=== PATIENT | female | born 1970 | race African-American/Black ===

== ENCOUNTER 2019-01-16 09:22 | Emergency (ER) | payer MEDICAID ==
[~2019-01-16] VITALS: Ht 157.5 cm; Wt 74.8 kg
[2019-01-16] MEDS ORDERED: AMOXICILLIN500 M1 PO (09:32)
[2019-01-16] MEDS ORDERED: IBUPROFEN600 MG ORAL (09:32)
--- NOTE | 2019-01-16 09:43 | NUR ---
ED Nurse Note: Pt walked in from home c/o lower back pain x2wks. Denies injury. Pt aaox4, placed in hospital gown. Urine sample collected and sent down to lab.
--- NOTE | 2019-01-16 09:46 | NUR ---
ED Nurse Note: ERMD at bedside.
[2019-01-16 09:58] VITALS: BP 132/69
--- NOTE | 2019-01-16 09:59 | Emergency Room Report ---
History of Present Illness General Chief Complaint: Back Pain-No Injury Source: Patient Present Illness HPI 48-year-old female presents with left flank pain increased urinary frequency x1 week, no fever no chills, no cough no congestion, she endorses a deep ache no aggravating relieving factors severity is moderate, constant, patient presents for evaluation. Allergies: Coded Allergies: GENTAMICIN (Verified Allergy, Unknown, 01/16/19) Patient History Past Medical History: see triage record Last Menstrual Period: 12/21/18 Now: No Reviewed Nursing Documentation: PMH: Agreed; PSxH: Agreed Review of Systems All Other Systems: negative except mentioned in HPI Physical Exam Vital Signs Date Time Temp Pulse Resp B/P (MAP) Pulse Ox O2 Delivery O2 Flow Rate FiO2 01/16/19 09:26 98.2 85 20 116/71 (86) 97 Room Air Sp02 EP Interpretation: reviewed, normal General Appearance: well appearing, no apparent distress, alert Head: normocephalic, atraumatic Eyes: bilateral eye PERRL, bilateral eye EOMI ENT: uvula midline, moist mucus membranes Neck: supple, thyroid normal, supple/symm/no masses Respiratory: lungs clear, no respiratory distress, no retraction, no accessory muscle use Cardiovascular #1: normal peripheral pulses, regular rate, rhythm, no edema, no gallop, no murmur Gastrointestinal: non tender, soft, no guarding, no rebound Genitourinary: CVA tenderness (L) Musculoskeletal: normal inspection Neurologic: alert, oriented x3 Psychiatric: mood/affect normal Skin: no rash, warm/dry Medical Decision Making Diagnostic Impression: Primary Impression: Back pain Qualified Codes: M54.5 - Low back pain Additional Impression: UTI (urinary tract infection) Qualified Codes: N30.00 - Acute cystitis without hematuria ER Course 48-year-old female presents with increased urination frequency, left flank pain , concerning for [place] versus UTI versus diverticulitis versus mechanical back pain Labs show possible UTI, CT scan shows no acute intra-abdominal processes Will provide patient with antibiotics, [id number] pain medication recommended for left lower back pain she has no red flags no bowel bladder retention/incontinence Disposition home with return precautions Laboratory Tests Test 01/16/19 09:35 01/16/19 09:50 Urine Color Pale yellow Urine Appearance Clear Urine pH 5 (4.5-8.0) Urine Specific [place] 1.010 (1.005-1.035) Urine Protein Negative (NEGATIVE) Urine Glucose (UA) Negative (NEGATIVE) Urine Ketones Negative (NEGATIVE) Urine Blood Negative (NEGATIVE) Urine Nitrite Negative (NEGATIVE) Urine Bilirubin Negative (NEGATIVE) Urine Urobilinogen Normal MG/DL (0.0-1.0) Urine Leukocyte Esterase 1+ (NEGATIVE) H Urine RBC 0-2 /HPF (0 - 2) Urine WBC 2-4 /HPF (0 - 2) Urine Squamous Epithelial Cells Few /LPF (NONE/OCC) Urine Bacteria Few /HPF (NONE) White Blood Count 8.0 K/UL (4.8-10.8) Red Blood Count 4.60 M/UL (4.20-5.40) Hemoglobin 13.6 G/DL (12.0-16.0) Hematocrit 40.8 % (37.0-47.0) Mean Corpuscular Volume 89 FL (80-99) Mean Corpuscular Hemoglobin 29.6 PG (27.0-31.0) Mean Corpuscular Hemoglobin Concent 33.4 G/DL (32.0-36.0) Red Cell Distribution Width 11.2 % (11.6-14.8) L Platelet Count 261 K/UL (150-450) Mean Platelet Volume 6.5 FL (6.5-10.1) Neutrophils (%) (Auto) 57.1 % (45.0-75.0) Lymphocytes (%) (Auto) 33.5 % (20.0-45.0) Monocytes (%) (Auto) 5.5 % (1.0-10.0) Eosinophils (%) (Auto) 2.9 % (0.0-3.0) Basophils (%) (Auto) 1.1 % (0.0-2.0) Sodium Level 141 MMOL/L (136-145) Potassium Level 4.2 MMOL/L (3.5-5.1) Chloride Level 108 MMOL/L (98-107) H Carbon Dioxide Level 27 MMOL/L (21-32) Anion Gap 6 mmol/L (5-15) Blood Urea Nitrogen 13 mg/dL (7-18) Creatinine 1.0 MG/DL (0.55-1.30) Estimate Glomerular Filtration Rate > 60 mL/min (>60) Glucose Level 105 MG/DL (74-106) Calcium Level 9.3 MG/DL (8.5-10.1) Total Bilirubin 0.6 MG/DL (0.2-1.0) Aspartate Amino Transferase (AST) 52 U/L (15-37) H Alanine Aminotransferase (ALT) 119 U/L (12-78) H Alkaline Phosphatase 112 U/L (46-116) Total Protein 7.9 G/DL (6.4-8.2) Albumin 4.0 G/DL (3.4-5.0) Globulin 3.9 g/dL Albumin/Globulin Ratio 1.0 (1.0-2.7) Lipase 78 U/L (73-393) Rhythm Strip Diag. Results Rhythm Strip Time: 12:44 EP Interpretation: yes Rate: 57 Rhythm: no PVC's, no ectopy, other - sinus bradycardia CT/MRI/US Diagnostic Results CT/MRI/US Diagnostic Results : Impression Procedure: CT Abdomen Pelvis w/Contrast Indication: Abdominal pain Technique: Continuous helical transaxial imaging of the abdomen and pelvis was obtained from the lung bases to the pubic symphysis during intravenous contrast administration. Coronal 2-D reformats were also obtained. Study obtained in a Siemens sensation [address] Automatic Exposure Control was utilized. Total Dose length Product (DLP): [address] Dose Index Volume (CTDIvol): 18.7 mGy Comparison: None Findings: Minimal basal atelectasis demonstrated. There is a mild bronchiectasis noted. The liver and spleen appear unremarkable. Pancreas is unremarkable. There is a low density right adrenal mass measuring 1.8 x 1.5 cm. The gallbladder is contracted. There are no renal stones or hydronephrosis identified. The appendix is seen and appears normal. The uterus is enlarged and heterogeneously enhancing. There is a 4.8 cm fibroid in the anterior uterine fundus noted. This projects slightly to the left. There is curvilinear calcification within the left ovary. There is a small amount of free fluid in the pelvis. Bladder is unremarkable. IMPRESSION: No acute findings. Uterine fibroids Right adrenal mass probably adenoma. This incidental finding may be followed up with MRI for confirmation. The CT scanner at [facility] is accredited by the [employer] and the scans are performed using dose optimization techniques as appropriate to a performed exam including Automatic Exposure control. Dictated By: Carlos Mcneil MD Electronically Signed By: Carlos Mcneil MD Signed Date/Time 01/16/19 1220 CC: Nicholas Camacho MD Last Vital Signs Date Time Temp Pulse Resp B/P (MAP) Pulse Ox O2 Delivery O2 Flow Rate FiO2 01/16/19 09:26 98.2 85 20 116/71 (86) 97 Room Air Disposition: HOME, SELF-CARE Condition: Stable Scripts Lidocaine Patch* (Lidoderm Patch*) 1 Each Adh..patch 1 PATCH TOPIC DAILY PRN for For Pain, #7 PATCH 0 Refills Patch(es) may remain in place for up to 12 hours in any 24-hour period. Prov: Nicholas Camacho MD 01/16/19 Naproxen* (NAPROSYN*) 250 Mg Tablet 250 MG ORAL BID PRN for For Pain, #20 TAB 0 Refills Prov: Nicholas Camacho MD 01/16/19 Cephalexin* (CEPHALEXIN*) 500 Mg Tablet 500 MG ORAL EVERY 6 HOURS, #20 CAP Prov: Nicholas Camacho MD 01/16/19 Referrals: [facility]. [facility] Patient Instructions: Back Pain, Adult, Urinary Tract Infection, [id number] Additional Instructions: The patient was provided with discharge instructions, notified to follow-up with a primary care doctor and or specialist in the next 24-48 hours, and to return to the ED if they have worsening of their symptoms. Please note that this report is being documented using DRAGON technology. This can lead to erroneous entry secondary to incorrect interpretation by the dictating instrument. Nicholas Camacho MD Jan 16, 2019 09:59
[2019-01-16] MEDS ORDERED: Omnipaque-300 100ml vial INJ PRN (10:00)
[2019-01-16 10:04] LABS: APPEARANCE,URINE CLEAR; BILIRUBIN, URINE NEGATIVE (NEGATIVE); COLOR,URINE PALE YELLOW; GLUCOSE, URINE (UA) NEGATIVE (NEGATIVE); KETONES,URINE NEGATIVE (NEGATIVE); LEUKOCYTE ESTERASE ,URINE 1+ (NEGATIVE); NITRITE,URINE NEGATIVE (NEGATIVE); PH,URINE 5 (4.5-8.0); PROTEIN,URINE NEGATIVE (NEGATIVE); UROBILINOGEN,URINE NORMAL MG/DL (0.0-1.0)
--- NOTE | 2019-01-16 10:05 | NUR ---
ED Nurse Note: Blood sample collected and taken to lab. IV fluids ongoing.
[2019-01-16 10:13] LABS: BASOPHILS % (AUTO) 1.1 % (0.0-2.0); EOSINOPHILS % (AUTO) 2.9 % (0.0-3.0); HEMATOCRIT 40.8 % (37.0-47.0); HEMOGLOBIN 13.6 G/DL (12.0-16.0); LYMPHOCYTES % (AUTO) 33.5 % (20.0-45.0); MEAN CORPUSCULAR VOLUME 89 FL (80-99); MONOCYTES % (AUTO) 5.5 % (1.0-10.0); NEUTROPHILS % (AUTO) 57.1 % (45.0-75.0); PLATELET COUNT 261 K/UL (150-450); RED CELL DISTRIBUTION WIDTH 11.2 % (11.6-14.8)
[2019-01-16 10:25] LABS: ANION GAP 6 mmol/L (5-15); BLOOD UREA NITROGEN 13 mg/dL (7-18); CALCIUM 9.3 MG/DL (8.5-10.1); CARBON DIOXIDE 27 MMOL/L (21-32); CHLORIDE 108 MMOL/L (98-107); POTASSIUM 4.2 MMOL/L (3.5-5.1); SODIUM 141 MMOL/L (136-145)
[2019-01-16 10:27] LABS: ALANINE AMINOTRANSFERASE 119 U/L (12-78); ALKALINE PHOSPHATASE 112 U/L (46-116); ASPARTATE AMINO TRANSFERASE 52 U/L (15-37); BILIRUBIN,TOTAL 0.6 MG/DL (0.2-1.0)
--- NOTE | 2019-01-16 11:15 | NUR ---
ED Nurse Note: Pt. was taken down for CT in stable condition.
--- NOTE | 2019-01-16 11:40 | NUR ---
ED Nurse Note: Pt back from CT in stable condition. Placed back on first mate.
[2019-01-16] MEDS ORDERED: Morphine Sulfate 4mg/ml Inj (IV USE ONLY) IVP ONE (12:00)
[2019-01-16 12:06] VITALS: BP 132/70
--- NOTE | 2019-01-16 12:25 | Diagnostic Imaging Report ---
Indication: Abdominal pain Technique: Continuous helical transaxial imaging of the abdomen and pelvis was obtained from the lung bases to the pubic symphysis during intravenous contrast administration. Coronal 2-D reformats were also obtained. Study obtained in a Siemens sensation [address] Automatic Exposure Control was utilized. Total Dose length Product (DLP): [address] Dose Index Volume (CTDIvol): 18.7 mGy Comparison: None Findings: Minimal basal atelectasis demonstrated. There is a mild bronchiectasis noted. The liver and spleen appear unremarkable. Pancreas is unremarkable. There is a low density right adrenal mass measuring 1.8 x 1.5 cm. The gallbladder is contracted. There are no renal stones or hydronephrosis identified. The appendix is seen and appears normal. The uterus is enlarged and heterogeneously enhancing. There is a 4.8 cm fibroid in the anterior uterine fundus noted. This projects slightly to the left. There is curvilinear calcification within the left ovary. There is a small amount of free fluid in the pelvis. Bladder is unremarkable. IMPRESSION: No acute findings. Uterine fibroids Right adrenal mass probably adenoma. This incidental finding may be followed up with MRI for confirmation. The CT scanner at [facility] is accredited by the [employer] and the scans are performed using dose optimization techniques as appropriate to a performed exam including Automatic Exposure control.
[2019-01-16] MEDS ORDERED: LIDODERM700 M1 TOPIC (12:45)
[2019-01-16] MEDS ORDERED: CEPHALEXIN500 M1 ORAL (12:45)
[2019-01-16] MEDS ORDERED: NAPROXEN250 MG ORAL (12:45)
--- NOTE | 2019-01-16 12:55 | NUR ---
ER DISCHARGE NOTE: Patient is cleared to be discharged per ERMD, pt is aox4, on room air, with stable vital signs. pt was given dc and prescription instructions, pt was able to verbalize understanding, pt id band and iv site removed without complications. pt is able to ambulate with steady gait. pt took all belongings.
[2019-01-16 13:09] VITALS: BP 132/70
== END 2019-01-16 13:11 | disposition home or self-care (01) ==
LOC: EMR 09:55
DX: N30.00 Acute cystitis without hematuria (principal); M54.5 Low back pain; Z88.1 Allergy status to other antibiotic agents; D25.9 Leiomyoma of uterus, unspecified
CPT/HCPCS: 36415; 74177; 80053; 81003; 83690; 85025; 96361; 96374; 96375; J2270; J2405; Q9967; Z7502; 99284